=== PATIENT | male | born 1995 | race Caucasian/White ===

== ENCOUNTER 2021-03-07 03:45 | Emergency (ER) | payer MEDICAID, SELFPAY ==
--- NOTE | 2021-03-07 | ECG_ITS ---
Test Reason : CHEST PAIN Blood Pressure : / mmHG Vent. Rate : 064 BPM Atrial Rate : 064 BPM P-R Int : 154 ms QRS Dur : 106 ms QT Int : 376 ms P-R-T Axes : 041 -41 012 degrees QTc Int : 387 ms Normal sinus rhythm Left axis deviation Incomplete right bundle branch block Abnormal ECG When compared with ECG of 07-MAR-2021 04:11, No significant change was found Referred By: Kaveh George Electronically Signed By:Rhys Cordero
--- NOTE | ~2021-03-07 | XR_ITS ---
EXAMINATION: XR CHEST CLINICAL INFORMATION: Chest pain COMPARISON: None TECHNIQUE: 2 views of the chest were obtained. FINDINGS: No significant abnormality is noted involving the heart, lungs, mediastinum, bony thorax or soft tissues. XR/XR chest 2V IMPRESSION: Unremarkable examination.
[2021-03-07 04:14] VITALS: BP 143/104; PULSE 79; RESP 16; TEMP 36.3; O2SAT 99; BMI 37.3
--- NOTE | 2021-03-07 05:06 | PC.NURSE ---
EKG OBTAINED TO . LABS DRAWN TO LAB.
[2021-03-07 05:10] LABS: MANUAL DIFF FLAG NO
[2021-03-07 05:11] LABS: Basophils Percent Auto 0.4 % (0-2); Eosinophils Absolute Auto 0.3 X10*3/uL (0.0-0.4); Eosinophils Percent Auto 2.7 % (0-4); Hemoglobin 14.5 g/dl (14.0-18.0); Imm Gran Abs Auto 0.04 X10*3/uL (0.00-0.03); Imm Gran Pct Auto 0.4 % (0.0-0.4); Lymphocytes Absolute Auto 3.3 X10*3/uL (1.2-4.9); Lymphocytes Percent Auto 33.8 % (20-40); Mean Corpuscular HGB Conc 31.5 g/dl (31.0-36.0); Mean Corpuscular Hemoglobin 21.5 pg (27.0-33.0); Mean Corpuscular Volume 68.2 fL (80-98); Mean Platelet Volume 10.7 fL (9.4-12.4); Monocytes Absolute Auto 0.6 X10*3/uL (0.1-1.2); Monocytes Percent Auto 6.6 % (2-11); Neutrophils Absolute Auto 5.4 X10*3/uL (2.0-8.3); Neutrophils Percent Auto 56.1 % (45-73); Platelet Count 220 X10*3/uL (160-400); Red Blood Count 6.74 X10*6/uL (4.60-5.80); Red Cell Distribution Width 17.9 % (11.0-16.0); White Blood Count 9.6 X10*3/uL (4.8-10.8)
[2021-03-07 05:37] LABS: Alanine Aminotransferase 28 U/L (0-40); Albumin Level 4.5 g/dL (3.5-5.0); Alkaline Phosphatase 98 U/L (39-117); Anion Gap 16 (12-20); Aspartate Amino Transferase 17 U/L (5-37); Bilirubin Total 0.3 mg/dL (0.0-1.0); Blood Urea Nitrogen 11 mg/dL (9-16); Calcium 9.6 mg/dL (8.4-10.2); Carbon Dioxide 26 mmol/L (22-29); Chloride 104 mmol/L (96-108); Creatinine Clr Calc Pharmacy 170.4; Estimated Glomerular Filt Rate > 60; Glucose Random 90 mg/dL (60-115); Potassium 4.6 mmol/L (3.3-5.1); Sodium 141 mmol/L (135-145); Total Protein 8.4 g/dL (6.5-8.0)
[2021-03-07 05:43] LABS: Troponin-I High Sensitivity < 3.5 ng/L (<3.5-35.0)
--- NOTE | 2021-03-07 06:36 | ECG_ITS ---
Test Reason : CHEST PAIN Blood Pressure : / mmHG Vent. Rate : 075 BPM Atrial Rate : 075 BPM P-R Int : 178 ms QRS Dur : 106 ms QT Int : 366 ms P-R-T Axes : 065 -50 031 degrees QTc Int : 408 ms Normal sinus rhythm with sinus arrhythmia Left axis deviation Incomplete right bundle branch block Abnormal ECG No previous ECGs available Referred By: Stanton Brink Electronically Signed By:Rhys Cordero
--- NOTE | 2021-03-07 06:53 | ED_ITS ---
HPI - Chest Pain General Chief Complaint: Chest Pain Stated Complaint: chest pain, arm numbness Time Seen by Provider: 03/07/21 06:33 Source: patient Mode of arrival: ambulatory Limitations: no limitations History of Present Illness HPI narrative: 25-year-old male who presents emergency department for evaluation of chest pain x3 days. Patient states that 3 days prior he started to have palpitations. States that at 1st the palpitations for intermittent and then became more frequent. He then developed chest pain. He points to his anterior chest when asked to localize the pain. Describes the pain is a constant, squeezing sensation which is 8/10 at its worst. He has experienced intermittent neck pain, jaw pain, back pain and pain in his arms. The pain is worse with exertion and is worse after eating. The pain improves if he rests. He had associated lightheadedness, nausea, and dyspnea on exertion. He denied shortness of breath. Patient denies any pain or swelling in his lower extremities. He denies any long trips or long periods of immobility. Patient states that in the beginning of January he had 2 weeks of cough which has improved however he states he still coughs occasionally. The cough is nonproductive. He denied fever, chills, abdominal pain, myalgias, arthralgias, frequency , urgency or dysuria. Related Data Allergies Allergy/AdvReac Type Severity Reaction Status Date / Time No Known Allergies Allergy Unverified 04/18/20 16:44 Review of Systems Review of Systems: Yes all other systems are reviewed and are negative [facility] Past Medical History [facility] Narrative: Past medical history: None. Past surgical history: None. Social history: The patient denies tobacco, alcohol and drug use. Family history: The patient does not know his father's family history. His mother is alive and well with no heart disease, he has 3 siblings who have no heart disease. Social History Social History Advance Directives: No Advance Directives Information Provided: No Physical Exam Vital Signs: Vital Signs: Last Vital Signs Temp 97.4 F 03/07/21 04:14 Pulse 79 03/07/21 04:14 Resp 16 03/07/21 04:14 BP 143/104 H 03/07/21 04:14 Pulse Ox 99 03/07/21 04:14 Body Mass Index 37.3 Const: General: cooperative and no acute distress Orientation/consc iousness: oriented to person and oriented to place Limitations: no limitations HENMT: Head: Yes normal to inspection, Yes normocephalic and Yes atraumatic Ears: external ears normal General nose exam: Normal external nose present Face and sinus: Yes normal facial exam Mouth: Normal oral and palatal mucosa present Throat: Yes posterior oropharynx normal Eyes: General: appearance normal, both eyes and all related structures Pupils: Equal, round and reactive pupils present Neck: Neck: Yes normal visual inspection, Yes no lymphadenopathy, Yes trachea midline and Yes supple Chest: Chest palpation & inspection: normal inspection of the chest and tenderness (Moderate anterior chest wall tenderness) Resp: Effort & Inspection: normal respiratory effort and able to speak in complete sentences Auscultation: clear to auscultation bilaterally Cardio: Rate: regular rate Rhythm: regular rhythm Heart sounds: S1 normal heart sound present, S2 normal heart sound present and no murmurs GI: Inspection: Yes normal to inspection Palpation (GI): Soft to palpation, nontender and no guarding Auscultation: normal bowel sounds : General: Yes no CVA tenderness Back/Spine/Pelvis: Back: no CVA tenderness Skin: General skin exam: no rashes or lesions noted Neuro: General: oriented to person and oriented to place Cranial nerves: Yes CN's II-XII intact bilaterally and Yes Equal, round and reactive pupils present Cognition (Neuro): normal cognition Motor exam (neuro): 5/5 motor strength present throughout Extrem: General: Yes normal to inspection Psych: Appearance: grossly normal Speech and movement: Normal speech and movement present Affect: normal affect Attitude: cooperative Thought pr ocess: Normal thought process present Thought content: Normal thought content present Course Course Course Narrative: 25-year-old male who presents emergency department for evaluation of 3 days of constant chest pain. Vital signs revealed an elevated blood pressure of 143/104 otherwise unremarkable. The patient's physical examination did reveal anterior chest wall tenderness otherwise was normal. Patient's 12 EKG was unremarkable. The patient's laboratory evaluation included a CBC, CMP and troponin, all these tests were normal. Chest x-ray revealed no acute abnormality. Patient's presentation is consistent with costochondritis most likely secondary to his recent viral illness. Patient was advised to take Tylenol and ibuprofen. The patient was given verbal and printed instructions prior to discharge. The patient was advised to follow-up with his PCP in 2 days and to return to the emergency department if his symptoms get worse or if he develops any new symptoms that are concerning to him. MDM - Chest Pain Lab Data Result diagrams: 03/07/21 05:04 03/07/21 05:04 Labs: Lab Results 03/07/21 03/07/21 03/07/21 Range/Units 05:04 05:04 05:04 WBC 9.6 (4.8-10.8) X10*3/uL RBC 6.74 H (4.60-5.80) X10*6/uL Hgb 14.5 (14.0-18.0) g/dl Hct 46.0 (42-52) % MCV 68.2 L (80-98) fL MCH 21.5 L (27.0-33.0) pg MCHC 31.5 (31.0-36.0) g/dl RDW 17.9 H (11.0-16.0) % Plt Count 220 (160-400) X10*3/uL MPV 10.7 (9.4-12.4) fL Immature Gran % (Auto) 0.4 (0.0-0.4) % Neut % (Auto) 56.1 (45-73) % Lymph % (Auto) 33.8 (20-40) % [place] % (Auto) 6.6 (2-11) % Eos % (Auto) 2.7 (0-4) % Baso % (Auto) 0.4 (0-2) % Lymph # (Auto) 3.3 (1.2-4.9) X10*3/uL [place] # (Auto) 0.6 (0.1-1.2) X10*3/uL Eos # (Auto) 0.3 (0.0-0.4) X10*3/uL Baso # (Auto) 0.0 (0.0-0.2) X10*3/uL Abs Immat Gran (auto) 0.04 H (0.00-0.03) X10*3/uL Absolute Neuts (auto) 5.4 (2.0-8.3) X10*3/uL Absolute Nucleated RBC 0.000 (0.0-0.012) X10*3/uL Nucleated RBC % (auto) 0.0 (0.0-0.2) /100WBC Sodium 141 (135-145) mmol/L Potassium 4.6 (3.3-5.1) mmol/L Chloride 104 (96-108) mmol/L Carbon Dioxide 26 (22-29) mmol/L Anion Gap 16 (12-20) BUN 11 (9-16) mg/dL Creatinine 0.86 (0.5-1.4) mg/dL Estim Creat Clear Calc 170.4 Estimated GFR > 60 Random Glucose 90 (60-115) mg/dL Calcium 9.6 (8.4-10.2) mg/dL Total Bilirubin 0.3 (0.0-1.0) mg/dL AST 17 (5-37) U/L ALT 28 (0-40) U/L Alkaline Phosphatase 98 (39-117) U/L Troponin I High Sens < 3.5 (<3.5-35.0) ng/L Total Protein 8.4 H (6.5-8.0) g/dL Albumin 4.5 (3.5-5.0) g/dL ECG Data ECG #1: Attestation: I personally reviewed and interpreted this ECG as follows: Interpretation: 0411: Normal sinus rhythm with sinus arrhythmia, rate of 75, normal OR interval, prolonged QRS duration of 106 milliseconds, normal QTC 408 milliseconds, no ST segment elevation, no ST segment depression, no PACs, no PVCs, no T-wave abnormalities, incomplete right bundle-branch block. ECG #2: Interpretation: 0603: Normal sinus rhythm with 64, normal OR interval, prolonged QRS of 106 milliseconds, normal QTC of 387 milliseconds, no ST segment elevation, no ST segment depression, no PACs, no PVCs, no T-wave abnormalities, incomplete right bundle jase block. No change compared to EKG done at 0411. Discharge Plan Discharge Clinical Impression: Acute costochondritis Patient Disposition: Home, Self-Care Instructions: Costochondritis (ED) Additional Instructions: Your laboratory evaluation was normal including a nondetectable high sensitivity troponin (marker for heart attack). Your EKGs were normal. Your chest x-ray was unremarkable. This negative evaluation is very reassuring and suggests that your pain is not caused by heart pain. I did have tenderness with palpation of the also seen joints of your chest, your symptoms are consistent with costochondritis (inflammation of the muscles and joints of your chest often caused by a viral infection). Take ibuprofen 200 mg pills, 3 pills every 6 hours as needed for pain. Take Tylenol (acetaminophen) 500 mg pills, 2 pills every 4 to 6 hours as needed for pain. Follow-up with your doctor in 2 days. Please return to the emergency department if your symptoms get worse or if you develop any symptoms that are concerning to you.
== END 2021-03-07 07:18 | disposition home or self-care (01) ==
PROVIDERS: Emergency Provider Emergency Medicine Emergency Medical Services
DX: M94.0 Chondrocostal junction syndrome [Tietze] (principal)
CPT/HCPCS: 36415; 71046; 80053; 84484; 85025; 93005; 99282; 99283